=== PATIENT | female | born 1960 | race Caucasian/White ===

== ENCOUNTER → 2017-02-09 | Outpatient (CLI) | payer OTHER ==
[~2017-02-09] MED LIST: ALBUTEROL17 GM INH; FISH OIL; HORMONE REPLACEMENT; MULTIVITAMIN
--- NOTE | ~2017-02-09 | MY29 ---
[facility] RADIOLOGY TEXT RESULTS PATIENT: DESTINEY BARTHOLOMEW LOCATION: [facility] : 62 UNIT #: [id number] AGE: [address]: Ponce Rodrigues MD SEX: F ORDER DR: [id number] [facility] [address] [place], [place] [address] [id number] O MR#: [id number] Acc #: [id number] NAME: DESTINEY BARTHOLOMEW : 1960 SEX: F STUDY DATE/TIME: 02/09/2017 14:30 UNIT: [facility] ROOM: STUDY DESCRIPTION: MY RICK SCREENING W/ CAD BILAT Attending Physician: Ponce Rodrigues M.D. Ordering Physician: Ponce Rodrigues M.D. Primary Care Physician: Ponce Rodrigues M.D. MEDICAL IMAGING REPORT This report is preliminary unless electronic signature is present EXAM Digital screening mammogram 02/09/2017. HISTORY 56-year-old woman, no risk elevation. Patient on hormone replacement at this time. Annual screen. COMPARISON STUDIES Comparison 09/01/2009 FINDINGS Digital imaging of each breast was completed utilizing screening protocol. Review includes FDA-approved CAD device. Breast parenchyma is partially fatty replaced with minimal residual fibroglandular opacities bilaterally. Subareolar duct prominence is noted in each breast. I see no interval occurring mass and no suspicious microcalcifications. There is no architectural deformity. IMPRESSION Negative mammogram. Annual screening recommended. BIRADS 1 Patients over the age of 40 are entered into a reminder system with target due date for the next mammogram. A result letter will also be sent to the patient. BIRADS: 1 - Negative Dictated by... Pillo Marte M.D. THIS IS AN ELECTRONICALLY VERIFIED REPORT Pillo Marte M.D. at 02/10/2017 8:02 AM [facility] A Service of [facility] RADIOLOGY TEXT RESULTS PATIENT: DESTINEY BARTHOLOMEW LOCATION: [facility] : 62 UNIT #: [id number] AGE: [address]: Ponce Rodrigues MD SEX: F ORDER DR: TD: 02/09/2017 16:02 JOB #: [id number] MEDICAL IMAGING REPORT Page 1 of 1 COPY
== END | disposition home or self-care (01) ==
LOC: CWCC 14:12
DX: Z12.31 Encounter for screening mammogram for malignant neoplasm of breast (principal); Z79.890 Hormone replacement therapy
CPT/HCPCS: G0202